=== PATIENT | female | born 1940 ===

== ENCOUNTER 2024-04-22 05:46 | Day surgery (SDC) | payer OTHER ==
[2024-04-21 09:07] LABS: HEMATOCRIT 37.7 % (36.0-45.00); HEMOGLOBIN 12.9 g/dL (12.0-15.00); MEAN CELL VOLUME 92.2 fL (80.00-100.00); MEAN CORPUSCULAR HEMOGLOBIN 31.6 pg (27.00-32.0); MEAN CORPUSCULAR HGB CONC 34.3 g/dl (32.0-36.0); PLATELET COUNT 209 K/uL (150-450); RED BLOOD COUNT 4.09 M/uL (4.00-6.00); RED CELL DISTRIBUTION WIDTH 13.2 % (11.5-14.5)
[2024-04-21 09:55] LABS: CALCIUM 9.1 mg/dL (8.5-10.1); CREATININE SERUM 0.74 mg/dL (0.55-1.02); GFR 74.95; POTASSIUM 3.7 mEq/L (3.5-5.1)
[2024-04-21 10:12] LABS: INR 0.98; PARTIAL THROMBOPLASTIN TIME 27.3 SECONDS (22.0-34.0); PROTHROMBIN TIME 10.3 SECONDS (9.0-11.5)
[~2024-04-22 05:46] MED LIST: ATORVASTATIN CA20 MG; PREVACID30 M1; SYNTHROID
[2024-04-22] MEDS ORDERED: TAMSULOSIN HCL 0.4 MG CAP PO ONE (08:30)
[2024-04-22] MEDS ORDERED: PHENAZOPYRIDINE HCL 100 MG TABLET PO ONE (08:30)
[2024-04-22] MEDS ORDERED: GENTAMICIN SULFATE 40 MG/ML VIAL IV ONE (09:30)
[2024-04-22] MEDS ORDERED: CHLORHEXIDINE GLUCONATE 120 ML BOTTLE TOP ONE (09:30)
== END 2024-04-22 15:00 | disposition home or self-care (01) ==
LOC: CIR.AMB 05:46
PROVIDERS: ATTEND Urology
DX: C67.9 Malignant neoplasm of bladder, unspecified (principal); K21.9 Gastro-esophageal reflux disease without esophagitis; E03.9 Hypothyroidism, unspecified; Z88.0 Allergy status to penicillin; Z88.2 Allergy status to sulfonamides

== ENCOUNTER 2024-05-02 07:16 | Outpatient (CLI) | payer OTHER | END 2024-05-02 07:25 | disposition home or self-care (01) | LOC: TOM 07:16 | PROVIDERS: ATTEND Urology | DX: C67.9 Malignant neoplasm of bladder, unspecified (principal) | CPT/HCPCS: 74178; Q9965 ==